=== PATIENT | male | born 1980 | race Caucasian/White ===

== ENCOUNTER 2017-12-09 17:20 | Emergency (ER) | payer OTHER ==
[~2017-12-09] VITALS: Ht 182.9 cm; Wt 77.1 kg
[2017-12-09] MEDS ORDERED: LOPE2C PO (17:35)
== END 2017-12-09 18:37 | disposition home or self-care (01) ==
LOC: ER 17:20
DX: S60.151A Contusion of right little finger with damage to nail, initial encounter (principal); W22.8XXA Striking against or struck by other objects, initial encounter; Z79.899 Other long term (current) drug therapy; F17.290 Nicotine dependence, other tobacco product, uncomplicated
CPT/HCPCS: 11740; 73140; 99283